=== PATIENT | female | born 1945 | race Hispanic/Latino ===

== ENCOUNTER 2017-09-20 19:39 | Observation (INO) | payer MEDICARE ==
[~2017-09-20] VITALS: Ht 165.1 cm; Wt 77.6 kg
[2017-09-20] MEDS ORDERED: ASPIRIN 81 MG CHEW TAB PO ONE (20:15)
[2017-09-20 20:21] LABS: BASOPHILS # (AUTO) 0.1 (0.0-0.1); BASOPHILS % 0.6 % (0.0-1.0); EOSINOPHILS # (AUTO) 0.2 (0.0-0.4); EOSINOPHILS % 1.6 % (0.0-6.0); HEMATOCRIT 33.9 % (34.2-44.1); HEMOGLOBIN 11.2 g/dL (12.0-16.0); LYMPHOCYTES # (AUTO) 2.3 (1.0-3.2); MEAN CORPUSCULAR HEMOGLOBIN 33.7 pg (28-32); MEAN CORPUSCULAR VOLUME 102.1 fL (81-99); MONOCYTES # (AUTO) 0.7 (0.2-0.8); MONOCYTES % 7.4 % (4.4-11.3); NEUTROPHILS # (AUTO) 6.2 (2.1-6.9); NEUTROPHILS % 66.1 % (38.7-80.0); PLATELET COUNT 211 x10e3/uL (140-360); RED BLOOD COUNT 3.32 x10e6/uL (3.6-5.1); RED CELL DISTRIBUTION WIDTH 13.8 % (11.7-14.4)
[2017-09-20 20:27] LABS: INR 1.2; PROTHROMBIN TIME 14.3 seconds (11.9-14.5)
[2017-09-20 20:28] LABS: PARTIAL THROMBOPLASTIN TIME 31.9 seconds (23.8-35.5)
[2017-09-20 20:35] LABS: ALBUMIN/GLOBULIN RATIO 0.7 (0.8-2.0); ANION GAP 14.3 mmol/L (8-16); CALCIUM 8.3 mg/dL (8.4-10.2); CREATININE, SERUM 3.74 mg/dL (0.57-1.11)
[2017-09-20 20:36] LABS: POTASSIUM 5.3 mmol/L (3.5-5.1)
--- NOTE | 2017-09-20 21:05 | Diagnostic Imaging Report ---
EXAM: CHEST SINGLE (PORTABLE), AP 1 view INDICATION: Bruising around pacemaker COMPARISON: None FINDINGS: LINES/TUBES: Left approach dual lead pacemaker without evidence of lead fracture or malalignment. LUNGS: No consolidations or edema. Minimal atelectasis left lung base. PLEURA: No effusions or pneumothorax. HEART AND MEDIASTINUM: Mildly prominent cardiac silhouette. BONES AND SOFT TISSUES: No acute findings. IMPRESSION: No acute thoracic abnormality. Signed by: Dr. Frannie Ledbetter M.D. on 09/20/2017 9:02 PM
[2017-09-20 21:08] LABS: BILIRUBIN,URINE NEGATIVE (NEGATIVE); CLARITY,URINE SL CLOUDY (CLEAR); COLOR,URINE YELLOW (YELLOW); KETONES,URINE NEGATIVE (NEGATIVE); LEUKOCYTE ESTERASE ,URINE 1+ (NEGATIVE); NITRITE,URINE NEGATIVE (NEGATIVE); PROTEIN,URINE DIPSTICK 1+ (NEGATIVE); URINE UROBILINOGEN 0.2 mg/dL (0.2 - 1)
[2017-09-20 21:19] LABS: BACTERIA,URINE MANY /HPF; EPITHELIAL CELLS,URINE RARE /LPF; MUCUS,URINE FEW (RARE); WBC,URINE (MAN) 21-50 /HPF (0-5)
[2017-09-20] MEDS ORDERED: CEFTRIAXONE SOD 1 GM VIAL IV SCH (22:30)
[2017-09-20] MEDS ORDERED: ONDANSETRON HCL INJ 2 MG/ML VIAL IV PRN (22:30)
[2017-09-20] MEDS ORDERED: MORPHINE SULFATE 2 MG/ML SYR IV PRN (22:30)
[2017-09-20] MEDS ORDERED: FAMOTIDINE 20 MG TAB PO SCH (22:30)
[2017-09-20] MEDS ORDERED: SODIUM CHLORIDE 0.9% 1000ML 1,000 ML IV SCH (22:30)
[2017-09-20] MEDS ORDERED: CARVEDILOL3.125 MG PO (23:17)
[2017-09-20] MEDS ORDERED: ISOSORBIDE DINI20 MG PO (23:17)
[2017-09-20] MEDS ORDERED: FUROSEMIDE40 MG PO (23:17)
[2017-09-20] MEDS ORDERED: ASPIRIN EC81 MG PO (23:17)
[2017-09-20] MEDS ORDERED: FENOFIBRATE145 MG PO (23:17)
[2017-09-20] MEDS ORDERED: LISINOPRIL10 MG PO (23:17)
[2017-09-20 23:22] VITALS: BP 158/81
[2017-09-21 00:19] VITALS: BP 158/81
[2017-09-21 00:28] VITALS: BP 158/81
[2017-09-21 01:02] LABS: CHOL/HDL RATIO 4.8 (3.0-3.6)
[2017-09-21] MEDS ORDERED: SODIUM CHLORIDE 0.9% 1000ML 1,000 ML IV SCH ×3 (05:00)
[2017-09-21] MEDS ORDERED: MORPHINE SULFATE 2 MG/ML SYR IV PRN ×3 (05:00)
[2017-09-21] MEDS ORDERED: ONDANSETRON HCL INJ 2 MG/ML VIAL IV PRN ×3 (05:00)
[2017-09-21] MEDS ORDERED: FAMOTIDINE 20 MG TAB PO SCH ×3 (05:00→09:00)
[2017-09-21 06:24] LABS: CREATINE KINASE MB 0.8 ng/mL (0-5.0)
[2017-09-21 06:41] LABS: ANION GAP 12.8 mmol/L (8-16); BASOPHILS # (AUTO) 0.1 (0.0-0.1); BASOPHILS % 0.6 % (0.0-1.0); CALCIUM 8.3 mg/dL (8.4-10.2); CHOL/HDL RATIO 5.3 (3.0-3.6); CREATININE, SERUM 3.74 mg/dL (0.57-1.11); EOSINOPHILS # (AUTO) 0.2 (0.0-0.4); EOSINOPHILS % 2.4 % (0.0-6.0); HEMATOCRIT 32.2 % (34.2-44.1); HEMOGLOBIN 10.4 g/dL (12.0-16.0); LYMPHOCYTES # (AUTO) 2.7 (1.0-3.2); LYMPHOCYTES % 31.4 % (18.0-39.1); MEAN CORPUSCULAR HEMOGLOBIN 33.3 pg (28-32); MEAN CORPUSCULAR HGB CONC 32.3 g/dL (31-35); MEAN CORPUSCULAR VOLUME 103.2 fL (81-99); MONOCYTES # (AUTO) 0.8 (0.2-0.8); MONOCYTES % 8.7 % (4.4-11.3); NEUTROPHILS # (AUTO) 4.9 (2.1-6.9); NEUTROPHILS % 56.7 % (38.7-80.0); PLATELET COUNT 192 x10e3/uL (140-360); POTASSIUM 4.8 mmol/L (3.5-5.1); RED BLOOD COUNT 3.12 x10e6/uL (3.6-5.1); RED CELL DISTRIBUTION WIDTH 13.8 % (11.7-14.4)
[2017-09-21 08:47] VITALS: BP 130/71
[2017-09-21] MEDS ORDERED: ASPIRIN 81 MG ENTERIC COATED PO SCH ×2 (09:00)
[2017-09-21 09:10] VITALS: BP 130/71
[2017-09-21 09:49] LABS: % IRON SATURATION 20 % (15-50); IRON 52 ug/dL (50-170); TOTAL IRON BINDING CAPACITY 266 ug/dL (261-478); TRANSFERRIN 190 mg/dL (180-382)
[2017-09-21] MEDS ORDERED: BACTRIM DS TAB1 EACH PO (09:58)
[2017-09-21] MEDS ORDERED: SODIUM BICARBO650 MG PO (09:58)
--- NOTE | 2017-09-21 10:38 | Discharge Summary ---
CLINICAL HISTORY: This is a 72-year-old woman admitted via the emergency room because of minimal hematoma at the AICD site associated with weakness and urinary tract infection. Please refer to my previous dictation concerning details of current illness, past medical history, personal and social history, family history, review of systems, physical examination, and initial laboratory studies. HOSPITAL COURSE: The patient was treated with small amount of intravenous fluids with resolution of her hyperkalemia and slight improvement in renal function. The BUN was 58 and creatinine was 3.7. She remained acidotic and was given bicarb. She was not particularly weak on day 2. Was anxious for discharge. She is to be discharged and followed on an outpatient basis. She is to continue the same medications with the addition of bicarb 650 mg p.o. daily and with the addition of Bactrim DS 1 tablet p.o. b.i.d. for 10 days. She was given activity, diet, medications, and followup instructions. Will see Dr. De La Torre and Dr. Rodriguez and me in 1 week. DISCHARGE DIAGNOSES: Same as on admission. LISHA ISIDRO MD Job#: [id number] RI cc:MD MASOOD MELVIN MD
[2017-09-21] MEDS: SODIUM BICARBONATE 650 MG TAB PO SCH ×2 (11:11→17:22)
--- NOTE | 2017-09-21 13:06 | History and Physical ---
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 Admitted via the emergency room because of urinary tract infection, metabolic acidosis, and generalized weakness. This patient's weight has been stable around 171 pounds. She is taking Lasix, Coreg, isosorbide, aspirin, lisinopril, and fenofibrate at home. She has difficulty getting her pacemaker checked and has not had that done for approximately 2 years probably because of insurance issues. There is history of nonsustained ventricular tachycardia. When she presented to the emergency room, she had pacemaker site pain, apparently there was a small bruise, there was no other pain elsewhere. There was tenderness there but no other places. EKG showed no acute changes. 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 PAST SURGERIES: Include AICD implantation approximately in 2011 at [facility]. Has history of appendectomy and bladder suspension. FAMILY HISTORY: Father at age 69 from cirrhosis. Mother at 65 from lung disease. She has seven brothers, reported healthy. PERSONAL AND SOCIAL HISTORY: She was a cigarette smoker one packet per day for about 5 years. Denied drinking. ALLERGIES: HYDROCORTISONE AND CIPRO. REVIEW OF SYSTEMS: Noncontributory. PHYSICAL EXAMINATION GENERAL: She is alert, coherent. VITAL SIGNS: Stable. CARDIOVASCULAR: Jugular veins were not distended. S1 S2 were regular. There is no appreciable murmur. LUNGS: Clear. ABDOMEN: Soft. Bowel sounds are present. EXTREMITIES: Show no cyanosis, clubbing or edema. LABORATORY STUDIES: Previous echocardiogram showed ejection fraction less than 20%. Previous pacemaker check showed ventricular tachycardia. The white count is 9400, hemoglobin 11.2, platelet count 212,000. Sodium 135, potassium 5.3, bicarb 15, BUN 67, creatinine 3.7. Albumin 3.0. INR is 1.2. Urinalysis showed 6 to 10 rbc's, 21-50 wbc's, many bacteria. She had no fever. Chest x-ray showed no acute changes. IMPRESSION 1. Minimal hematoma at the automated implantable cardioverter-defibrillator site with INR slightly increased at 1.2 without history of trauma with automated implantable cardioverter-defibrillator to be checked. 2. Urinary tract infection. 3. Severe ischemic cardiomyopathy, ejection fraction less than 20%. 4. Automated implantable cardioverter-defibrillator because of ventricular tachycardia and cardiomyopathy. 5. Compensated congestive heart failure. 6. Hypertension. 7. Hyperlipidemia. 8. Coronary artery disease. 9. Chronic kidney disease, stage 4-5. 10. Distant history of appendectomy, bladder suspension. 11. Anemia of chronic disease. RECOMMENDATIONS: Antibiotics, correction of metabolic acidosis, correction of the hyperkalemia. Continue current management for coronary artery disease, check AICD, consult renal. This patient can probably be discharged and probably follow up on an outpatient basis. Job#: [id number] RTY cc:MD Billy Leon MD
[2017-09-21 13:30] VITALS: BP 148/70
[2017-09-21] MEDS ORDERED: ISOSORBIDE DINITRATE 20 MG TAB PO SCH (15:00)
[2017-09-21 16:14] VITALS: BP 149/67
[2017-09-21] MEDS ORDERED: KEFLEX500 MG PO (16:24)
[2017-09-21] MEDS ORDERED: CARVEDILOL 3.125 MG TAB PO SCH (17:00)
[2017-09-21] MEDS ORDERED: LISINOPRIL 10 MG TAB PO SCH (17:00)
[2017-09-21] MEDS ORDERED: LISINOPRIL 20 MG TAB PO SCH (17:00)
[2017-09-21] MEDS ORDERED: CEFTRIAXONE SOD 1 GM VIAL IV SCH ×3 (22:00)
[2017-09-22] MEDS ORDERED: ASPIRIN 81 MG ENTERIC COATED PO SCH (09:00)
[2017-09-22] MEDS ORDERED: FENOFIBRATE 145 MG TAB PO SCH (09:00)
--- NOTE | 2017-09-22 13:59 | Consultation ---
DATE OF CONSULTATION: September 21, 2017 RENAL CONSULTATION HISTORY OF PRESENT ILLNESS: Ms. Valdes is well known to us. She is a 72-year-old lady, underlying history of coronary artery disease, history of AICD, pacemaker placement, came in with some redness and very small, less than a dime-sized ecchymotic area over the pacemaker site. She is pleasant, alert, comfortable. No apparent distress. Denies any nausea, vomiting, chest pain, shortness of breath. She is an existing patient of ours with advanced kidney failure, CKD4. Has hypertension, type 2 diabetes, multiple comorbids. Has been on aspirin at home. She denies any fall or injury. She has been maintained on lisinopril, famotidine, ceftriaxone, carvedilol, aspirin, morphine sulfate, ondansetron, as well as p.o. bicarbonate. SOCIAL HISTORY: Patient does not smoke or drink. FAMILY HISTORY: Significant for type 2 diabetes. PHYSICAL EXAMINATION: GENERAL: Awake, alert, lying supine. No apparent distress. VITALS: Blood pressure 148/70, pulse rate 71, afebrile, with a regular rhythm, with a respiratory rate 18, oxygen saturation 99% room air. HEAD AND NECK: Cornea clear. Oral mucosa dry. LUNGS: Relatively clear. Supine exam. No rales or rhonchi. HEART: S1 and S2 audible. ABDOMEN: Otherwise soft, nontender. LOWER EXTREMITY EXAMINATION: Shows no edema. AICD PACEMAKER SITE: Description as above. 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 Potassium in the normal range. Iron profile normal. Lipid disorder. Mild hypoalbuminemia. Total proteins within normal range. Will stop the Bactrim which Dr. Bain has started. Place the patient on Keflex, a prescription written. Will titrate the dose of sodium bicarbonate tablets. Discussed with patient. Will follow up in the office in 1 week. Volume status stable. Job#: [id number] HARINDER
== END 2017-09-21 17:52 | disposition home or self-care (01) ==
LOC: ER 19:39 → MED/SURG 22:29 → ER 23:18 → MED/SURG 23:30 → ER 23:35 → MED/SURG 23:35 → UNDOADMOB 09-21 05:59 → UNDODISOB 09-21 17:52
PROVIDERS: ADMIT Internal Medicine Cardiovascular Disease; ATTEND Internal Medicine Cardiovascular Disease
DX: N30.01 Acute cystitis with hematuria (principal); N25.89 Other disorders resulting from impaired renal tubular function; R53.1 Weakness; N17.9 Acute kidney failure, unspecified; N18.4 Chronic kidney disease, stage 4 (severe); I25.10 Atherosclerotic heart disease of native coronary artery without angina pectoris; Z95.810 Presence of automatic (implantable) cardiac defibrillator; E11.22 Type 2 diabetes mellitus with diabetic chronic kidney disease; E88.09 Other disorders of plasma-protein metabolism, not elsewhere classified; I25.2 Old myocardial infarction; D64.9 Anemia, unspecified; E87.5 Hyperkalemia; I97.638 Postprocedural hematoma of a circulatory system organ or structure following other circulatory system procedure; I13.0 Hypertensive heart and chronic kidney disease with heart failure and stage 1 through stage 4 chronic kidney disease, or unspecified chronic kidney disease; I50.9 Heart failure, unspecified; I25.5 Ischemic cardiomyopathy; E78.5 Hyperlipidemia, unspecified; D63.8 Anemia in other chronic diseases classified elsewhere
CPT/HCPCS: 36415 ×2; 71045; 80048; 80053; 80061 ×2; 81001; 82550 ×2; 82553 ×2; 83540; 84466; 84484 ×2; 85025; 85610; 85730; 87040; 87086; 87186; 93005; 97116; 97161; 99284; G0378 ×2; J0696; J7030